=== PATIENT | female | born 1960 | race Caucasian/White ===

== ENCOUNTER 2016-06-25 14:42 | Inpatient (IN) | payer OTHER ==
[~2016-06-25] VITALS: Ht 170.2 cm; Wt 79.4 kg
--- NOTE | 2016-06-25 14:53 | NUR ---
PT BIB SELF C/C RT EAR PAIN AND STS CANNOT HEAR X 1 MONTH STS WAS SEEN BY PMD BUT STS STILL IN PAIN DR WINTER AT BEDSIDE TO DONATO
--- NOTE | 2016-06-25 15:06 | NUR ---
PT TAKEN TO RADIOLOGY FOR CT
--- NOTE | 2016-06-25 15:13 | NUR ---
PLEASE ENTER FULL NAMES OF LINTER TENDER/RN Patient data collected by (LINTER TENDER): Deshaun SIERRA Assessment reviewed and completed by (RN): Alexander LUNA
--- NOTE | 2016-06-25 16:03 | NUR ---
DR WINTER AT BEDSIDE TO GO OVER PLAN OF CARE
--- NOTE | 2016-06-25 16:20 | NUR ---
PER PT TOLD HIM SHE WAS GOING OUT TO TELL HER SHE WILL STAY
--- NOTE | 2016-06-25 17:05 | NUR ---
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
[2016-06-25] MEDS ORDERED: SYNTHROID0.2 MG PO (17:58)
[2016-06-25] MEDS ORDERED: CARVEDILOL12.5 M1 PO (17:59)
--- NOTE | 2016-06-25 18:14 | NUR ---
PT STARTED ON IV ATB
[2016-06-25 18:17] LABS: BASOPHIL % 0.6 % (0-2); PLATELET COUNT 232 x10^3mcL (130-400)
[2016-06-25 18:19] LABS: RED CELL DISTRIBUTION WIDTH 15.6 % (11.5-14.5)
--- NOTE | 2016-06-25 18:19 | NUR ---
PT ADMIT TO TELE ROOM 236A GAVE REPORT TO JULIO
[2016-06-25 18:20] LABS: CALCIUM 8.4 mg/dL (8.5-10.1); CARBON DIOXIDE 30.6 mmol/L (21-32); CHLORIDE SERUM 104 mmol/L (98-107); CREATININE SERUM 0.8 mg/dL (0.6-1.0); GFR1 > 60 mL/min; GLUCOSE SERUM 106 mg/dL (74-106); POTASSIUM SERUM 3.5 mmol/L (3.5-5.1); SODIUM SERUM 143 mmol/L (136-145)
[2016-06-25 18:25] LABS: ALBUMIN 3.6 g/dL (3.4-5.0); ALKALINE PHOSPHATASE 51 U/L (46-116); ALT/SGPT 89 U/L (14-59); AST/SGOT 105 U/L (15-37); BILIRUBIN TOTAL 0.42 mg/dL (0.20-1.00); TOTAL PROTEIN, SERUM 7.4 g/dL (6.4-8.2)
[2016-06-25 18:46] VITALS: BP 161/86
--- NOTE | 2016-06-25 18:52 | NUR ---
REC'D AOX4. SPEECH CLEAR. C/O RIGHT EAR PAIN 7/10 AND HEARING LOSS. AMBULATES WITH STEADY GAIT. USED RESTROOM TO VOID. ON RA, NO SOB NOTED. ATTACHED TELE 7, NSR. IV SITE WNL. ORIENTED TO ROOM AND SURROUNDINGS. CALL LIGHT WITHIN REACH, WILL CONTINUE TO MONITOR.
[2016-06-25 18:58] LABS: T3 TOTAL 1.56 ng/mL
[2016-06-25 19:05] LABS: CHOLESTEROL/HDL RATIO 3.5; FREE T4 2.24 ng/dL (0.76-1.46); FREE THYROXINE INDEX 5.9 ug/dL (1.4-4.5); T4(THYROXINE) 14.1 ug/dL (4.7-13.3)
--- NOTE | 2016-06-25 19:28 | NUR ---
PATIENT RESTING IN BED, AT THE BEDSIDE. PROVIDED REPORT TO CABRERA MOREL FOR CONTINUITY OF CARE.
--- NOTE | 2016-06-25 20:00 | NUR ---
PT A/A/O X4. DENIES DIZZINESS AND HEADACHE. ORUTSARARMIUT ON LEFT EAR MORE ON THE RIGHT. NO EAR DRAINAGE NOTED. NO C/O EAR PAIN. BREATH SOUNDS CLEAR. BREATHING EVEN AND UNLABORED ON ROOM AIR. DENIES CHEST PAIN AND PRESSURE. BOWEL SOUNDS ACTIVE. NO C/O N/V AND ABD PAIN. IV INTACT ON THE RAC INFUSING WITH NS AT 90 ML/HR. MADE PT COMFORTABLE. PLACED CALL LIGHT WITH IN REACH. WILL CONTINUE TO MONITOR.
[2016-06-25 20:24] VITALS: BP 157/92
--- NOTE | 2016-06-26 00:02 | NUR ---
DR. CUMMINGS AT PATIENTS BEDSIDE WITH MED STUDENT CLEARING PATIENTS RIGHT EAR OF DEBRIS. PT TOLERATED IT WELL. WILL CONTINUE TO MONITOR.
--- NOTE | 2016-06-26 00:40 | NUR ---
PT C/O NAUSEA. GAVE PT ZOFRAN IVP. PT TOLERATED IT WELL. WILL CONTINUE TO MONITOR.
[2016-06-26 05:56] VITALS: BP 158/99
[2016-06-26 06:11] LABS: CALCIUM 8.8 mg/dL (8.5-10.1); CARBON DIOXIDE 29.9 mmol/L (21-32); CREATININE SERUM 0.8 mg/dL (0.6-1.0); GFR1 > 60 mL/min; GLUCOSE SERUM 105 mg/dL (74-106); MAGNESIUM 1.8 mg/dL (1.8-2.4)
--- NOTE | 2016-06-26 06:30 | NUR ---
PATIENTS BLOOD PRESSURE 158/99 HR 84. GAVE PT COREG PO EARLY THAN SCHEDULED. DR. CUMMINGS AT BEDSIDE AND NOTIFED. PT WITH NO C/O EAR PAIN THUS FAR. IV INTACT AND INFUSING ORDERED. MADE PT COMFORTABLE. WILL ENDORSE TO THE AM NURSE ACCORDINGLY.
[2016-06-26 06:56] LABS: BASOPHIL % 0.7 % (0-2); PLATELET COUNT 217 x10^3mcL (130-400)
[2016-06-26 06:57] LABS: RED CELL DISTRIBUTION WIDTH 15.7 % (11.5-14.5)
[2016-06-26 07:09] LABS: CHLORIDE SERUM 103 mmol/L (98-107); POTASSIUM SERUM 3.9 mmol/L (3.5-5.1); SODIUM SERUM 142 mmol/L (136-145)
--- NOTE | 2016-06-26 07:50 | NUR ---
RECEIVED PT IN BED A/A/OX4 DENIES CAVAZOS. RESP EVEN AND UNLABORED WITH CLEAR BS BILAT. DENIES ANY SOB/CP/PRESSUER. NO EDEMA NOTED. C/O MILD RT EAR PAIN, STATES UNABLE TO HEAR ON RT EAR AND [place] TO LT EAR WITH ONGOING TX FOR RT EAR INFECTION. ABD SOFT, NONTENDER WITH ACTIVE BS X4. DENIES ANY N/V AT THIS TIME. VOIDING FREELY, AMBULATORY. CALL LIGHT IN REACH NEEDS ATTENDED TO.
[2016-06-26] MEDS ORDERED: DIF100 PO (09:51)
[2016-06-26] MEDS ORDERED: BACDS PO (09:51)
[2016-06-26] MEDS ORDERED: LAC PO (09:52)
[2016-06-26 10:34] VITALS: BP 154/97
[2016-06-26 11:03] VITALS: BP 154/97
[2016-06-26] MEDS ORDERED: ZOFRAN ODT4 MG SL (11:10)
[2016-06-26 11:35] LABS: microscopic required? NO
--- NOTE | 2016-06-26 11:38 | NUR ---
PT/ PROVIDED WITH D/C HOME INSTRUCTIONS. GIVEN MEDICATION/PRESCRIPTION EDUCATION. MADE AWARE PRESCRIPTION HAS BEEN SENT TO [facility]. PT MADE AWARE OF F/U APPT WITH PCP ON THURSDAY. PT/ VERBALIZED UNDERSTANDING OF INSTRUCTIONS. TELE AND IV D/C'D CATHETER INTACT. PT AMBULATED TO LOBBY WITH ALL PERSONAL BELONGINGS IN HAND FREE OF ANY APPARENT DISTRESS.
[2016-06-26 12:01] LABS: urine erythrocyte NEGATIVE (NEGATIVE)
[2016-06-26 12:06] LABS: AMPHETAMINE QUAL UR NONE DETECTED (NEG <=1000)
== END 2016-06-26 11:38 | disposition home or self-care (01) | DRG 153 ==
LOC: ED 14:42 → DU 16:23
PROVIDERS: Emergency Medicine; ADMIT Family Medicine
DX: H70.001 Acute mastoiditis without complications, right ear (principal); B37.89 Other sites of candidiasis; H66.91 Otitis media, unspecified, right ear; K21.9 Gastro-esophageal reflux disease without esophagitis; I10 Essential (primary) hypertension; E03.9 Hypothyroidism, unspecified
CPT/HCPCS: 80307; 83880; 84439; C9113; J0696; J1450; J1885; J1940; J2001; J2405; J7030